=== PATIENT | female | born 1980 | race Caucasian/White ===

== ENCOUNTER → 2019-03-13 | Outpatient (CLI) | payer OTHER ==
--- NOTE | 2019-03-13 10:13 | MR ---
EXAMINATION TYPE: MR cervical spine wo con DATE OF EXAM: 03/13/2019 COMPARISON: None HISTORY: Neck pain CONTRAST: Performed utilizing 0 mL intravenous Gadavist gadolinium contrast. TECHNIQUE: Multiplanar multiecho imaging on a 3.0 Freida magnet is performed through the cervical spin e. FINDINGS: The craniovertebral junction is normal. Vertebral body alignment is normal. Some disc de siccation is present C2-3 through C4-5. Disc height and vertebral body heights appear preserved. No suspicious disc herniation is evident. There is some mild disc bulging present C6-7 with mild ante rior thecal sac contact. Some mild left foraminal narrowing may be present. Mild uncovertebral joint hypertrophy is present C5-6. Some minimal disc bulging and left paracentral region is present C3-4. N o obvious stenosis or nerve root impingement is evident at this level. IMPRESSIONS: 1. Minimal disc bulging of questionable clinical significance present C6-7 and C3-4. 2. Mild uncovertebral joint hypertrophy with minimal foraminal narrowing C5-6.
== END | disposition home or self-care (01) ==
LOC: RADMRIMAIN 09:28
PROVIDERS: ATTEND Orthopaedic Surgery Orthopaedic Surgery of the Spine
DX: M48.02 Spinal stenosis, cervical region (principal); M50.10 Cervical disc disorder with radiculopathy, unspecified cervical region
CPT/HCPCS: 72141